=== PATIENT | male | born 1995 | race Caucasian/White ===

== ENCOUNTER 2016-12-28 17:53 | Emergency (ER) | payer SELFPAY ==
[~2016-12-28] VITALS: Ht 177.8 cm; Wt 83.5 kg
[2016-12-28 22:01] VITALS: BP 139/85
== END 2016-12-28 22:01 | disposition home or self-care (01) ==
LOC: ED 17:53
DX: J06.9 Acute upper respiratory infection, unspecified (principal); R03.0 Elevated blood-pressure reading, without diagnosis of hypertension
CPT/HCPCS: J7512

== ENCOUNTER 2017-03-05 20:25 | Emergency (ER) | payer MEDICAID ==
[2017-03-06 00:53] VITALS: BP 153/109
== END 2017-03-06 00:53 | disposition home or self-care (01) ==
LOC: ED 20:25
DX: Z48.01 Encounter for change or removal of surgical wound dressing (principal); Z88.0 Allergy status to penicillin

== ENCOUNTER 2017-06-18 08:47 | Emergency (ER) | payer SELFPAY ==
[~2017-06-18] VITALS: Ht 180.3 cm; Wt 81.6 kg
[2017-06-18 09:07] VITALS: Ht 180.3 cm; Wt 81.6 kg
[2017-06-18 12:10] VITALS: BP 128/90
== END 2017-06-18 12:10 | disposition home or self-care (01) ==
LOC: ED 08:47
DX: J00 Acute nasopharyngitis [common cold] (principal)

== ENCOUNTER 2017-07-24 16:18 | Emergency (ER) | payer SELFPAY ==
[~2017-07-24] VITALS: Ht 177.8 cm; Wt 79.4 kg
[2017-07-24 16:37] VITALS: Ht 177.8 cm; Wt 79.4 kg
[2017-07-24 17:54] LABS: BASOPHIL % 0.3 % (0-2); PLATELET COUNT 274 x10^3mcL (130-400); RED CELL DISTRIBUTION WIDTH 13.9 % (11.5-14.5)
[2017-07-24 18:01] LABS: CALCIUM 10.1 mg/dL (8.5-10.1); CHLORIDE SERUM 102 mmol/L (98-107); CREATININE SERUM 1.4 mg/dL (0.7-1.3); GFR1 > 60 mL/min; GLUCOSE SERUM 193 mg/dL (74-106); POTASSIUM SERUM 3.5 mmol/L (3.5-5.1); SODIUM SERUM 138 mmol/L (136-145)
[2017-07-24 18:05] LABS: ALKALINE PHOSPHATASE 77 U/L (46-116); ALT/SGPT 29 U/L (16-63); AST/SGOT 19 U/L (15-37); BILIRUBIN TOTAL 0.7 mg/dL (0.20-1.00)
[2017-07-24 18:06] LABS: TOTAL PROTEIN, SERUM 8.6 g/dL (6.4-8.2)
[2017-07-24 18:24] LABS: AMPHETAMINE QUAL UR NONE DETECTED (NEG <=1000)
[2017-07-24 19:47] LABS: UA SPECIFIC GRAVITY >=1.030 (1.005-1.035); microscopic required? YES; urine erythrocyte 1+ (NEGATIVE)
[2017-07-24 21:36] VITALS: BP 155/65
== END 2017-07-24 21:36 | disposition home or self-care (01) ==
LOC: ED 16:18
PROVIDERS: Emergency Medicine
DX: E86.0 Dehydration (principal); F19.10 Other psychoactive substance abuse, uncomplicated; Z88.0 Allergy status to penicillin
CPT/HCPCS: G0480; J2765; J7030